=== PATIENT | female | born 1940 | race Caucasian/White ===

== ENCOUNTER → 2018-12-17 | Outpatient (CLI) | payer MEDICARE, OTHER ==
[2018-09-10 08:52] VITALS: BP 125/65
[~2018-12-17] MED LIST: ACET500T33 PO; ALBU2.5V14 NEB; ASPI-630 PO; ATEN25TA PO; ATOR20TA PO; BUDE10.2 IH; CHOL2000 PO; DEXL60CA2 PO; DOCU100C28 PO; ESCITALOPRAM OXA5 MG PO; FEBU40TA PO; FEBU80TA2 PO; FERR325T14 PO; FURO-68 PO; GABA-585 PO; GABA300C18 PO; GLIM1TAB PO; LEVO150T5 PO; LEVO500T59 PO; LEVO75TA5 PO; METO2.5T PO; MULT1TAB52 PO; POTA20TA82 PO; PYRI200T3 PO; ROPI1TAB PO; SPIR25TA PO; TRIA1TAB PO; TRIA1TAB3 PO; UMEC62.5 IH
--- NOTE | 2018-12-17 17:01 | RAD ---
Chest, 2 views, 12/17/2018: HISTORY: Pulmonary embolism Comparison is made to a study from 09/08/2018. The heart size is normal. There is extensive calcific plaquing of the thoracic aorta. An unchanged linear opacity in the left base probably represents scarring. There is mild interstitial prominence in the lungs. No pleural fluid is seen. Mild scattered degenerative changes are present in the spine. IMPRESSION: 1. Extensive aortic atherosclerosis. 2. Mild interstitial prominence in the lungs suggesting interstitial edema versus mild fibrosis. Electronically signed by: Antoni Palacios MD (12/17/2018 4:57 PM) [facility]
--- NOTE | 2018-12-17 17:02 | RAD ---
Ventilation/perfusion lung scan, 12/17/2018: HISTORY: Lower extremity swelling The ventilation study was performed utilizing 17 mCi of xenon-133. Activity in the lungs is mildly heterogeneous. There is fairly good washout of the xenon from the lungs. Perfusion imaging was performed utilizing 5.5 mCi of technetium 99m MAA. There is a similar pattern of activity in both lungs. No segmental or significant unmatched perfusion defects are seen. IMPRESSION: There are no VQ findings to suggest pulmonary emboli. Electronically signed by: Antoni Palacios MD (12/17/2018 4:59 PM) [facility]
== END | disposition home or self-care (01) ==
LOC: NM 15:21
PROVIDERS: ATTEND Internal Medicine
DX: I70.0 Atherosclerosis of aorta (principal); I26.99 Other pulmonary embolism without acute cor pulmonale
CPT/HCPCS: 71046; 78582; 96374; A9540; A9558